=== PATIENT | male | born 1960 | race Caucasian/White ===

== ENCOUNTER → 2018-05-17 | Outpatient (CLI) | payer BC | END | disposition home or self-care (01) | LOC: CFH 14:10 | PROVIDERS: ATTEND Internal Medicine Cardiovascular Disease | DX: I34.0 Nonrheumatic mitral (valve) insufficiency (principal); I42.9 Cardiomyopathy, unspecified; I48.91 Unspecified atrial fibrillation | CPT/HCPCS: 93306 ==

== ENCOUNTER → 2021-03-15 | Outpatient (CLI) | payer BC ==
[~2021-03-15] MED LIST: OMNIPAQUE 350 MG/ML, 150 ML BOTTLE ONE
== END | disposition home or self-care (01) ==
LOC: CFH 12:28
PROVIDERS: ATTEND Internal Medicine Cardiovascular Disease
DX: I48.91 Unspecified atrial fibrillation (principal); I34.0 Nonrheumatic mitral (valve) insufficiency; G47.30 Sleep apnea, unspecified
CPT/HCPCS: 71046; 75572; Q9967

== ENCOUNTER 2021-03-18 05:59 | Observation (INO) | payer BC ==
[~2021-03-18] VITALS: Ht 193 cm; Wt 107.2 kg
[2021-03-18 07:10] VITALS: BP 149/68
[2021-03-18] MEDS ORDERED: DILT180C72 PO (07:15)
[2021-03-18 07:48] LABS: BASOPHILS % (AUTO) 1 % (0-1); EOSINOPHILS % (AUTO) 2 % (1-7); LYMPHOCYTES % (AUTO) 17 % (22-44); MEAN PLATELET VOLUME 8.9 fL (7.4-10.4); MONOCYTES % (AUTO) 10 % (2-9); NEUTROPHILS % (AUTO) 71 % (42-75); PLATELET COUNT 191 x10^3/uL (130-400); RED CELL DISTRIBUTION WIDTH 13.2 % (9.4-14.8)
[2021-03-18] MEDS ORDERED: FENTANYL PF 100 MCG/2ML ONE (07:55)
[2021-03-18] MEDS ORDERED: MIDAZOLAM 1 MG/ML, 2ML ONE (07:55)
[2021-03-18 07:59] LABS: ANION GAP 4 mmol/L (5-15); CALCIUM 8.4 mg/dL (8.5-10.1); CHLORIDE 111 mmol/L (98-107); CREATININE 0.86 mg/dL (0.7-1.3); MD NO
[2021-03-18] MEDS ORDERED: HEPARIN 1,000 UNITS/ML, 10ML ONE ×3 (07:59→09:05)
[2021-03-18] MEDS ORDERED: SODIUM CHLORIDE 0.9% 1,000 ML IV SCH (08:00)
[2021-03-18] MEDS ORDERED: LIDOCAINE 1%, 20ML ONE (08:03)
[2021-03-18] MEDS ORDERED: FENTANYL PF 100 MCG/2ML IV PRN (08:30)
[2021-03-18] MEDS ORDERED: ONDANSETRON 2MG/ML, 2ML IVPush PRN (08:30)
[2021-03-18] MEDS ORDERED: EPHEDRINE 50 MG/ML, 1ML IVPush PRN (08:30)
[2021-03-18] MEDS ORDERED: hydrALAzine 20 MG/ML, 1ML IV PRN (08:30)
[2021-03-18] MEDS ORDERED: PROMETHAZINE 25 MG/ML, 1ML IVPush PRN (08:30)
[2021-03-18] MEDS ORDERED: HYDROmorphone 1 MG/ML, 1ML INJ IVPush PRN (08:30)
[2021-03-18] MEDS ORDERED: OXYcodone 5 MG/5 ML ORAL.SOL UDC PO PRN (08:30)
[2021-03-18] MEDS ORDERED: ACETAMINOPHEN 325 MG TABLET PO PRN ×2 (08:30→11:30)
[2021-03-18] MEDS ORDERED: LABETALOL 5MG/ML, 20ML IV PRN (08:30)
[2021-03-18] MEDS ORDERED: ONDANSETRON 2MG/ML, 2ML ONE (08:31)
[2021-03-18] MEDS ORDERED: SUCCINYLCHOLINE 20 MG/ML, 10ML ONE (08:31)
[2021-03-18] MEDS ORDERED: PROPOFOL 10 MG/ML, 20ML ONE (08:31)
[2021-03-18] MEDS ORDERED: ROCURONIUM 10MG/ML,5ML ONE (08:31)
[2021-03-18] MEDS ORDERED: DEXAMETHASONE 4 MG/ML, 1ML ONE (08:31)
[2021-03-18] MEDS ORDERED: NEOSTIGMINE 1 MG/ML, 10ML ONE (08:31)
[2021-03-18] MEDS ORDERED: GLYCOPYRROLATE 0.2MG/1ML, 5ML ONE (08:31)
[2021-03-18] MEDS ORDERED: PHENYLEPHRINE 10 MG/ML ONE ×2 (08:34→10:07)
[2021-03-18] MEDS: APIXABAN 5 MG TABLET PO SCH ×2 (11:30→20:26)
[2021-03-18] MEDS ORDERED: ZOLPIDEM 5MG TABLET PO PRN (11:30)
[2021-03-18] MEDS ORDERED: APIXABAN 5 MG TABLET ONE (12:04)
[2021-03-18] MEDS: FLECAINIDE 100MG TABLET PO SCH ×2 (12:31→23:01)
[2021-03-18 13:16] VITALS: BP 104/71
[2021-03-18 20:00] VITALS: BP 106/74
[2021-03-18] MEDS: COLCHICINE 0.6 MG CAPSULE PO SCH (20:26)
[2021-03-19 01:32] VITALS: BP 110/75
[2021-03-19 07:44] VITALS: BP 112/71
[2021-03-19] MEDS: COLCHICINE 0.6 MG CAPSULE PO SCH (09:51)
[2021-03-19] MEDS: APIXABAN 5 MG TABLET PO SCH (09:51)
[2021-03-19] MEDS ORDERED: APIX5TAB PO (10:33)
[2021-03-19] MEDS ORDERED: COLC0.6C3 PO (10:33)
[2021-03-19] MEDS ORDERED: FLEC100T PO (10:33)
[2021-03-19] MEDS: FLECAINIDE 100MG TABLET PO SCH (12:20)
== END 2021-03-19 12:43 | disposition home or self-care (01) ==
LOC: CACL 05:59 → ORIP 11:09 → 5SO 12:09 → DCLOUNGE 03-19 12:39
PROVIDERS: ADMIT Internal Medicine Cardiovascular Disease; ATTEND Internal Medicine Cardiovascular Disease
DX: I48.91 Unspecified atrial fibrillation (principal); Z20.822 Contact with and (suspected) exposure to COVID-19; I48.3 Typical atrial flutter; I45.9 Conduction disorder, unspecified; Z79.899 Other long term (current) drug therapy
CPT/HCPCS: 36415; 80048; 85025; 93306; 93613; 93655; 93656; 93657; 93662; C1730; C1732; C1759; C1766; C1893; C1894; G0378; J0330; J1100; J1644; J2250; J2370; J2405; J2704; J2710; J3010; J3490; U0003